=== PATIENT | female | born 1985 | race Caucasian/White ===

== ENCOUNTER 2019-07-19 13:31 | Emergency (ER) | payer SELFPAY ==
[2019-07-19 13:40] VITALS: BP 118/64; PULSE 69; TEMP 97.6; BMI 22.2
--- NOTE | 2019-07-19 14:40 | PDOC ---
History of Present Illness - General Chief Complaint: Vaginal Sxs Stated Complaint: VAGINAL DISCHARGE Time Seen by Provider: 07/19/19 13:56 History Source: Patient Exam Limitations: Clinical Condition - History of Present Illness Initial Comments: 07/19/19 14:35 Patient LMP 05/17 with no significant past medical history presented with complaint of 3-day history of vaginal discharge 6 weeks by LMP. Patient reported LMP May 17. Denies vaginal bleeding report mild nausea but no vomiting. Denies abdominal pain. Patient did not take anything for symptoms. Patient wants to be evaluated to make sure how many weeks she is Is this a multiple visit Asthma Patient?: No Timing/Duration: other (3 days) Past History - Past Medical History Allergies/Adverse Reactions: Allergies Allergy/AdvReac Type Severity Reaction Status Date / Time No Known Allergies Allergy Verified 07/19/19 13:44 Home Medications: Ambulatory Orders Terconazole 80 mg VG HS 5 Days #5 supp.vag 07/19/19 COPD: No Other medical history: scoliosis - Psycho Social/Smoking Cessation Hx Smoking History: Former smoker Have you smoked in the past 12 months: Yes Number of Cigarettes Smoked Daily: 2 Information on smoking cessation initiated: No Hx Alcohol Use: No Drug/Substance Use Hx: Yes Review of Systems - Review of Systems Able to Perform ROS?: Yes Is the patient limited Slovak proficient: No Constitutional: No: Symptoms Reported, Chills, Fever HEENTM: No: Symptoms Reported Respiratory: No: Symptoms reported Cardiac (ROS): No: Symptoms Reported ABD/GI: Yes: Symptoms Reported, See HPI, Nausea. No: Blood Streaked Bowels, Constipated, Diarrhea, Vomiting, Abdominal cramping : Yes: Symptoms Reported, See HPI, Discharge. No: Burning, Dysuria, Frequency , Hematuria, Urgency, Other (vaginal bleeding) Musculoskeletal: No: Symptoms Reported, Back Pain All Other Systems: Reviewed and Negative *Physical Exam - Vital Signs Last Vital Signs Temp Pulse Resp BP Pulse Ox 97.6 F 69 19 118/64 100 07/19/19 13:36 07/19/19 13:36 07/19/19 13:36 07/19/19 13:36 07/19/19 13:36 - Physical Exam General Appearance: Yes: Nourished, Appropriately Dressed. No: Apparent Distress HEENT: positive: Normal ENT Inspection Neck: positive: Supple Respiratory/Chest: negative: Respiratory Distress, Accessory Muscle Use Cardiovascular: positive: Regular Rhythm, Regular Rate Female Pelvic Exam: positive: normal external exam, cervical os closed, normal adnexa, discharge (small amount of white thick discharge). negative: lesions, adnexal tenderness, vaginal bleeding Gastrointestinal/Abdominal: positive: Normal Bowel Sounds, Flat. negative: Tender Musculoskeletal: positive: Normal Inspection. negative: CVA Tenderness Extremity: positive: Normal Capillary Refill, Normal Inspection Integumentary: positive: Normal Color Neurologic: positive: Fully Oriented, Alert, Normal Mood/Affect, Normal Response ED Treatment Course - RADIOLOGY Radiology Studies Ordered: Category Date Time Status TRANSVAGINAL US PREG [US] Stat Ultrasound 07/19/19 14:07 Ordered Medical Decision Making - Medical Decision Making 07/19/19 14:36 Patient with no significant past medical history presented with complaint of 3- day history of vaginal discharge 6 weeks by LMP. Patient reported LMP May 17. Denies vaginal bleeding report mild nausea but no vomiting. Denies abdominal pain. Patient did not take anything for symptoms. Patient wants to be evaluated to make sure how many weeks she is Exam significant for small amount of white thick discharge in vaginal vault consistent with candidiasis. No blood in vaginal vault. No CMT. Cervical os closed. Beta-hCG, urine GC and chlamydia tests ordered. Vaginal discharge culture obtained and sent to lab. Transvaginal ultrasound ordered to evaluate . Patient will be discharged home on topical miconazole for candidiasis. Discharge - Discharge Information Problems reviewed: Yes Clinical Impression/Diagnosis: Candidiasis of vagina during Qualifiers: Weeks of gestation: less than 8 weeks Qualified Code(s): Z3A.01 - Less than 8 weeks gestation of Condition: Stable Disposition: HOME - Admission No - Additional Discharge Information Prescriptions: Terconazole 80 mg VG HS 5 Days #5 supp.vag - Follow up/Referral - Patient Discharge Instructions Patient Printed Discharge Instructions: DI for Vaginal Yeast Infection Additional Instructions: Your ultrasound shows early intrauterine of 6 weeks gestational. Follow-up with your PEDIATRIC DERMATOLOGIST to establish OB care. Take prescribed medication as prescribed for yeast infection.Come back to emergency room if vaginal bleeding - Post Discharge Activity Work/Back to School Note: Parent(s) Back to Work Note
== END 2019-07-19 16:20 | disposition home or self-care (01) ==
LOC: JERFT 13:31
DX: O26.891 Other specified pregnancy related conditions, first trimester (principal); O98.811 Other maternal infectious and parasitic diseases complicating pregnancy, first trimester; B37.3 Candidiasis of vulva and vagina; Z3A.01 Less than 8 weeks gestation of pregnancy
CPT/HCPCS: 36415; 76817-TC; 84702; 87070; 87205; 87491; 87591; 99281-25

== ENCOUNTER 2021-01-29 12:53 | Emergency (ER) | payer OTHER ==
[2021-01-29 13:07] VITALS: BP 120/73; PULSE 68; TEMP 98.5; BMI 21.2
[2021-01-29] MEDS ORDERED: ACETAMINOPHEN 500 MG TABLET (FP) PO ONE (13:32)
[2021-01-29 14:30] LABS: BASO % 0.9 % (0-2.0); EOS % 1.6 % (0-4.5); HEMATOCRIT 32.9 % (32.4-45.2); HEMOGLOBIN 11.5 GM/dL (10.7-15.3); LYMPH % 31.8 % (8-40); MCH 32.6 pg (25.7-33.7); MCHC 34.9 g/dl (32.0-36.0); MEAN CELL VOLUME 93.4 fl (80-96); MEAN PLT VOLUME 8.1 fl (7.5-11.1); MONO % 7.7 % (3.8-10.2); PLATELET COUNT 267 K/MM3 (134-434); RBC 3.52 M/mm3 (3.60-5.2); RDW 13.2 % (11.6-15.6); WHITE BLOOD COUNT 8.5 K/mm3 (4.0-10.0)
[2021-01-29 14:51] LABS: CALCIUM 8.7 mg/dL (8.5-10.1)
[2021-01-29 14:52] LABS: BLOOD UREA NITROGEN 14.2 mg/dL (7-18)
[2021-01-29] MEDS ORDERED: ACETAMINOPHEN 500 MG TABLET (FP) ONE (14:52)
[2021-01-29 14:55] LABS: CREATININE 0.5 mg/dL (0.55-1.3)
[2021-01-29 15:14] LABS: EPI CELLS 17 /uL (0-25.1); HYALINE CASTS 18 /uL (0-3.1); PH,URINE 6.5 (5.0-8.0); URINE APPEARANCE CLEAR; URINE BACTERIA 1415 /uL (0-1359); URINE BILIRUBIN NEGATIVE (NEGATIVE); URINE COLOR YELLOW; URINE GLUCOSE (UA) NEGATIVE (NEGATIVE); URINE KETONE TRACE (NEGATIVE); URINE LEUK ESTERASE 1+ (NEGATIVE); URINE NITRITE NEGATIVE (NEGATIVE); URINE PROTEIN 1+ (NEGATIVE); URINE RBC 13 /uL (0-23.9); URINE WBC 350 /uL (0-25.8)
== END 2021-01-29 16:00 | disposition home or self-care (01) ==
LOC: JER 12:53
DX: O23.41 Unspecified infection of urinary tract in pregnancy, first trimester (principal); Z3A.09 9 weeks gestation of pregnancy
CPT/HCPCS: 36415; 76801-TC; 80048; 81003; 84702; 84703; 85025; 86850; 86900; 86901; 87086; 99284-25